=== PATIENT | male | born 1950 | race Caucasian/White ===

== ENCOUNTER 2018-06-26 17:36 | Inpatient (IN) ==
[2018-06-26] MEDS ORDERED: ALPRAZolam 0.25 MG TABLET PO PRN (17:52)
[2018-06-26] MEDS ORDERED: TEMAZEPAM 7.5 MG CAPSULE PO PRN (17:52)
[2018-06-26] MEDS ORDERED: PROMETHAZINE INJ 25 MG in SODIUM CHLORIDE 0.9% 50 ML IV PRN (17:52)
[2018-06-26] MEDS ORDERED: chlorproMAZINE 25 MG TABLET PO PRN (17:52)
[2018-06-26] MEDS ORDERED: MAGNESIUM HYDROXIDE SUSP 30 ML UDCUP PO PRN (17:52)
[2018-06-26] MEDS ORDERED: MYLANTA/LIDO VISC 2:1 300 ML BOTTLE SWISH/SWAL PRN (17:52)
[2018-06-26] MEDS ORDERED: traMADol 50 MG TABLET PO PRN (17:52)
[2018-06-26] MEDS ORDERED: BENZTROPINE 2 MG/2 ML AMP IV PRN (17:52)
[2018-06-26] MEDS ORDERED: LACTULOSE 20 GM/30 ML UDCUP PO PRN (17:52)
[2018-06-26] MEDS ORDERED: chlorproMAZINE INJ 25 MG in SODIUM CHLORIDE 0.9% 100 ML IV PRN (17:52)
[2018-06-26] MEDS ORDERED: ONDANSETRON 4 MG/2 ML VIAL IV PRN (17:52)
[2018-06-26] MEDS ORDERED: MYLANTA/LIDO VISC 2:1 300 ML BOTTLE SWISH/SPIT PRN (17:52)
[2018-06-26] MEDS ORDERED: LOPERAMIDE 2 MG CAPSULE PO PRN ×2 (17:52)
[2018-06-26] MEDS ORDERED: diphenhydrAMINE CAP 25 MG CAPSULE PO PRN (17:52)
[2018-06-26] MEDS ORDERED: chlorproMAZINE INJ 50 MG in SODIUM CHLORIDE 0.9% 100 ML IV PRN (17:52)
[2018-06-26] MEDS ORDERED: ALUMINUM/MAGNES/SIMETH MAX STR 30 ML UDCUP PO PRN (17:52)
[2018-06-26] MEDS ORDERED: guaiFENesin 200 MG/10 ML UDCUP PO PRN (17:52)
[2018-06-26 18:55] LABS: Basophils % 0.3 % (0.0-0.8); Eosinophils % 0.2 % (0.00-10.9); Hematocrit 34.9 VOL% (42.0-52.0); Hemoglobin 11.9 GM/DL (14.0-18.0); Immature Granulocytes % 3.7 %; Immature Granulocytes Absolute 0.22 #; Lymphocytes # 0.7 10*3/uL (1.4-4.0); Lymphocytes % 11.8 % (21.2-54.2); Mean Corpuscular HGB Conc 34.1 GM/DL (32-36); Mean Corpuscular Hemoglobin 31 PG (27-34); Mean Corpuscular Volume 91.8 FL (87-102); Mean Platelet Volume 8.4 FL (9.6-12.0); Monocytes # 0.5 10*3/uL (0.11-0.8); Monocytes % 8.9 % (1.7-12.7); NRBC # 0.07 10*3/uL; Neutrophils # 4.4 10*3/uL (1.4-7.4); Neutrophils % 75.1 % (38.7-73.9); Platelet Count 179 T/CUMM (130-400); Red Cell Distribution Width 17.2 % (9.3-17.3); White Blood Count 5.9 T/CUMM (4-12)
[2018-06-26 19:17] LABS: Albumin 2.5 G/DL (3.4-5.0); Bilirubin,Total 0.9 MG/DL (0.2-1.0); Calcium 8.4 MG/DL (8.5-10.1); Osmolality,Calculated 272.8 MOS/KG (273-304); Potassium 3.6 MMOL/L (3.5-5.1); Total Protein 6.4 G/DL (6.4-8.3); Uric Acid 2.9 MG/DL (3.5-7.2)
[2018-06-26] MEDS ORDERED: HYDROCORTISONE 100 MG VIAL IV ONE (20:28)
[2018-06-26] MEDS ORDERED: ALBUTEROL/IPRATROPIUM 3 ML NEB RESP TX PRN (20:29)
[2018-06-26] MEDS: SODIUM CHLORIDE 0.45% 1,000 ML IV SCH (20:42)
[2018-06-26] MEDS: MORPHINE 4 MG/1 ML VIAL IV PRN (20:47)
[2018-06-26] MEDS: ALBUTEROL/IPRATROPIUM 3 ML NEB RESP TX SCH (23:30)
[2018-06-27 03:29] LABS: Apearance,Urine CLEAR (Clear); Bilirubin,Urine Negative (Negative); Blood, Urine Negative (Negative); Glucose,Urine (UA) Negative (Negative); Ketones,Urine 5 mg/dL (Negative); Nitrite,Urine Negative (Negative); Protein,Urine Negative; RBC,Urine <1 /HPF (0-4); Urine Color Yellow (Yellow); WBC,Urine 1 /HPF (0-6)
[2018-06-27 06:11] LABS: Basophils % 0.2 % (0.0-0.8); Hematocrit 31.4 VOL% (42.0-52.0); Hemoglobin 10.9 GM/DL (14.0-18.0); Immature Granulocytes Absolute 0.23 #; Lymphocytes # 0.6 10*3/uL (1.4-4.0); Lymphocytes % 10.8 % (21.2-54.2); Mean Corpuscular HGB Conc 34.7 GM/DL (32-36); Mean Corpuscular Hemoglobin 32 PG (27-34); Mean Corpuscular Volume 92.4 FL (87-102); Mean Platelet Volume 8.8 FL (9.6-12.0); Monocytes # 0.5 10*3/uL (0.11-0.8); Monocytes % 8.4 % (1.7-12.7); NRBC # 0.04 10*3/uL; Neutrophils # 4.4 10*3/uL (1.4-7.4); Neutrophils % 76.6 % (38.7-73.9); Platelet Count 174 T/CUMM (130-400); Red Cell Distribution Width 17.1 % (9.3-17.3); White Blood Count 5.7 T/CUMM (4-12)
[2018-06-27] MEDS: CLINDAMYCIN INJ 900 MG in PREMIX 1 EACH IV SCH ×3 (06:28→22:47)
[2018-06-27] MEDS: ALBUTEROL/IPRATROPIUM 3 ML NEB RESP TX SCH ×2 (07:34→14:21)
[2018-06-27 07:45] LABS: Band Neutrophils 5 % (0-10); Lymphocytes 9 % (20-55); Myelocytes 2 %; Segmented Neutrophils 76 % (50-85); Total Cells Counted 100
[2018-06-27 07:46] LABS: Hypochromasia 1+; Microcytosis 1+; Polychromasia Slight
[2018-06-27 07:47] LABS: Platelet Estimate Adequate
[2018-06-27] MEDS ORDERED: Vilazodone Hcl [Viibryd] 20 MG PO SCH (09:15)
[2018-06-27] MEDS: ACETAMINOPHEN 325 MG TABLET PO PRN ×2 (09:20→10:07)
[2018-06-27] MEDS: DEXAMETHASONE 4 MG TABLET PO SCH (09:20)
[2018-06-27] MEDS: SODIUM CHLORIDE 0.45% 1,000 ML IV SCH (09:30)
[2018-06-27] MEDS: LORazepam 2 MG/1 ML VIAL IV PRN ×2 (11:53→17:27)
[2018-06-27] MEDS: KETOROLAC 30 MG/1 ML VIAL IV SCH (17:28)
[2018-06-27] MEDS ORDERED: NICOTINE 21 MG/24 HR PATCH TRANSDERM PRN (18:47)
[2018-06-27] MEDS ORDERED: LORazepam 2 MG/1 ML VIAL IV ONE (19:09)
[2018-06-27] MEDS: MORPHINE 4 MG/1 ML VIAL IV PRN ×2 (19:40→22:43)
[2018-06-27] MEDS ORDERED: MORPHINE 10 MG/1 ML VIAL IV PRN (19:45)
[2018-06-27] MEDS: GABAPENTIN 300 MG CAPSULE PO SCH (20:17)
[2018-06-27] MEDS ORDERED: HYDROCORTISONE 100 MG VIAL IV SCH (20:30)
[2018-06-28] MEDS: ALBUTEROL/IPRATROPIUM 3 ML NEB RESP TX SCH ×4 (00:26→23:10)
[2018-06-28] MEDS: SODIUM CHLORIDE 0.45% 1,000 ML IV SCH ×2 (01:20→15:16)
[2018-06-28] MEDS: MORPHINE 4 MG/1 ML VIAL IV PRN ×4 (01:21→20:49)
[2018-06-28] MEDS: KETOROLAC 30 MG/1 ML VIAL IV SCH ×3 (01:24→16:46)
[2018-06-28] MEDS: CLINDAMYCIN INJ 900 MG in PREMIX 1 EACH IV SCH ×3 (07:12→21:33)
[2018-06-28] MEDS: FLUDROCORTISONE 0.1 MG TABLET PO SCH (08:27)
[2018-06-28] MEDS: DEXAMETHASONE 4 MG TABLET PO SCH (08:27)
[2018-06-28] MEDS: GABAPENTIN 300 MG CAPSULE PO SCH ×2 (08:28→20:48)
[2018-06-28] MEDS: clonazePAM 0.5 MG TABLET PO SCH (08:28)
[2018-06-28] MEDS: PANTOPRAZOLE 40 MG TABLET PO SCH (08:28)
[2018-06-28] MEDS: LORazepam 2 MG/1 ML VIAL IV PRN ×3 (08:44→20:56)
[2018-06-29] MEDS: KETOROLAC 30 MG/1 ML VIAL IV SCH ×2 (01:26→09:01)
[2018-06-29] MEDS: LORazepam 2 MG/1 ML VIAL IV PRN ×4 (01:32→20:23)
[2018-06-29] MEDS: MORPHINE 4 MG/1 ML VIAL IV PRN ×5 (02:24→20:25)
[2018-06-29] MEDS: SODIUM CHLORIDE 0.45% 1,000 ML IV SCH ×2 (04:46→11:45)
[2018-06-29] MEDS: CLINDAMYCIN INJ 900 MG in PREMIX 1 EACH IV SCH ×3 (05:58→22:32)
[2018-06-29] MEDS: ALBUTEROL/IPRATROPIUM 3 ML NEB RESP TX SCH ×3 (07:50→22:42)
[2018-06-29] MEDS ORDERED: KETOROLAC 30 MG/1 ML VIAL IV PRN (09:01)
[2018-06-29] MEDS: DEXAMETHASONE 4 MG TABLET PO SCH (09:25)
[2018-06-29] MEDS: FLUDROCORTISONE 0.1 MG TABLET PO SCH (09:25)
[2018-06-29] MEDS: PANTOPRAZOLE 40 MG TABLET PO SCH (09:25)
[2018-06-29] MEDS: GABAPENTIN 300 MG CAPSULE PO SCH ×2 (09:25→21:28)
[2018-06-29] MEDS: clonazePAM 0.5 MG TABLET PO SCH (09:25)
[2018-06-29] MEDS: DEXAMETHASONE INJ 4 MG in SODIUM CHLORIDE 0.9% 50 ML IV SCH (10:48)
[2018-06-30] MEDS: SODIUM CHLORIDE 0.45% 1,000 ML IV SCH ×3 (04:02→14:28)
[2018-06-30] MEDS: MORPHINE 4 MG/1 ML VIAL IV PRN ×4 (04:03→19:59)
[2018-06-30] MEDS: LORazepam 2 MG/1 ML VIAL IV PRN ×5 (04:04→23:59)
[2018-06-30] MEDS: CLINDAMYCIN INJ 900 MG in PREMIX 1 EACH IV SCH ×3 (05:47→22:10)
[2018-06-30] MEDS: ALBUTEROL/IPRATROPIUM 3 ML NEB RESP TX SCH ×3 (07:15→23:46)
[2018-06-30] MEDS: DEXAMETHASONE INJ 4 MG in SODIUM CHLORIDE 0.9% 50 ML IV SCH (09:08)
[2018-06-30] MEDS: PANTOPRAZOLE 40 MG TABLET PO SCH (09:16)
[2018-06-30] MEDS: clonazePAM 0.5 MG TABLET PO SCH (09:16)
[2018-06-30] MEDS: FLUDROCORTISONE 0.1 MG TABLET PO SCH (09:16)
[2018-06-30] MEDS: DEXAMETHASONE 4 MG TABLET PO SCH (09:16)
[2018-06-30] MEDS: GABAPENTIN 300 MG CAPSULE PO SCH ×2 (09:16→20:45)
[2018-07-01] MEDS: LORazepam 2 MG/1 ML VIAL IV PRN ×2 (03:57→13:36)
[2018-07-01] MEDS: CLINDAMYCIN INJ 900 MG in PREMIX 1 EACH IV SCH ×3 (06:13→22:07)
[2018-07-01] MEDS: MORPHINE 4 MG/1 ML VIAL IV PRN (06:17)
[2018-07-01] MEDS: GABAPENTIN 300 MG CAPSULE PO SCH ×2 (08:01→22:03)
[2018-07-01] MEDS: clonazePAM 0.5 MG TABLET PO SCH (08:01)
[2018-07-01] MEDS: FLUDROCORTISONE 0.1 MG TABLET PO SCH (08:01)
[2018-07-01] MEDS: DEXAMETHASONE 4 MG TABLET PO SCH (08:01)
[2018-07-01] MEDS: PANTOPRAZOLE 40 MG TABLET PO SCH (08:01)
[2018-07-01] MEDS: ALBUTEROL/IPRATROPIUM 3 ML NEB RESP TX SCH ×3 (08:14→23:29)
[2018-07-01] MEDS: DEXAMETHASONE INJ 4 MG in SODIUM CHLORIDE 0.9% 50 ML IV SCH (09:35)
[2018-07-01] MEDS: SODIUM CHLORIDE 0.45% 1,000 ML IV SCH (19:25)
[2018-07-01] MEDS: MORPHINE 10 MG/1 ML VIAL IV PRN (22:03)
[2018-07-02] MEDS: MORPHINE 10 MG/1 ML VIAL IV PRN (02:00)
[2018-07-02] MEDS: CLINDAMYCIN INJ 900 MG in PREMIX 1 EACH IV SCH (06:22)
[2018-07-02] MEDS: ALBUTEROL/IPRATROPIUM 3 ML NEB RESP TX SCH (08:00)
[2018-07-02] MEDS: MORPHINE 4 MG/1 ML VIAL IV PRN (08:04)
[2018-07-02] MEDS: DEXAMETHASONE 4 MG TABLET PO SCH (08:07)
[2018-07-02] MEDS: GABAPENTIN 300 MG CAPSULE PO SCH (08:07)
[2018-07-02] MEDS: PANTOPRAZOLE 40 MG TABLET PO SCH (08:07)
[2018-07-02] MEDS: clonazePAM 0.5 MG TABLET PO SCH (08:07)
[2018-07-02] MEDS: FLUDROCORTISONE 0.1 MG TABLET PO SCH (08:07)
[2018-07-02] MEDS: DEXAMETHASONE INJ 4 MG in SODIUM CHLORIDE 0.9% 50 ML IV SCH (09:27)
[2018-07-02 13:22] VITALS: BP 162/74
== END 2018-07-02 14:25 | disposition expired | DRG 181 ==
LOC: N.4E 18:24
PROVIDERS: ADMIT Specialist; ATTEND Specialist